=== PATIENT | female | born 2000 | race Caucasian/White ===

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

== ENCOUNTER 2018-07-24 17:35 | Emergency (ER) | payer MEDICAID ==
[2018-07-24 18:03] VITALS: BP 125/88
--- NOTE | 2018-07-24 18:24 | EDM.PDOC ---
ED HPI GENERAL MEDICAL PROBLEM - General Chief Complaint: Skin Complaint Stated Complaint: SPOTS ON LEG Time Seen by Provider: 07/24/18 18:04 Source of Information: Reports: Patient, RN Notes Reviewed History Limitations: Reports: No Limitations - History of Present Illness INITIAL COMMENTS - FREE TEXT/NARRATIVE: 17-year-old female presents emergency department today with a rash to the back of her right leg she has 2 ringlike lesions the just started today they are tender it is not itchy and the skin is dry around him she's never had this before. Denies any tick exposure - Related Data Allergies Allergy/AdvReac Type Severity Reaction Status Date / Time No Known Allergies Allergy Verified 07/24/18 17:55 Home Meds: Home Meds NK [No Known Home Meds] 07/18/16 [History] Past Medical History Other PURCHASING BUYER History: pt has an IUD in place Social & Family History - Tobacco Use Smoking Status *Q: Never Smoker - Caffeine Use Caffeine Use: Reports: Coffee ED ROS GENERAL - Review of Systems Review Of Systems: See Below Constitutional: Reports: No Symptoms Skin: Reports: Rash. Denies: Pruritis ED EXAM, SKIN/RASH Exam: See Below Text/Narrative:: Examination of the integument system there are 2 ringlike lesions one is approximately the size of a dime the other slightly smaller back of the right thigh they are not tender to palpation they are rough in texture consistent with nummular eczema Course - Vital Signs Last Recorded V/S: Last Vital Signs Temp 97.1 F 07/24/18 18:01 Pulse 96 07/24/18 18:01 Resp 14 07/24/18 18:01 BP 125/88 07/24/18 18:01 Pulse Ox 98 07/24/18 18:01 Departure - Departure Time of Disposition: 18:24 Disposition: Home, Self-Care 01 Condition: Good Clinical Impression: Nummular eczema - Discharge Information Referrals: Zulma Lorenzo MD [Primary Care Provider] - Additional Instructions: Triamcinolone 1% cream applied to affected area 3 times a day until clear follow up with primary care in 3-5 days if no improvement - Assessment/Plan Plan: Assessment Acuity = acute Site and laterality = nummular eczema Etiology = unknown etiology Manifestations = none Location of injury = Home Lab values = none Plan Triamcinolone 1% cream applied to affected area 3 times a day until clear follow up with primary care in 3-5 days if no improvement This note was dictated using [employer]™ Audio voice recognition software please call with any questions on syntax or grammar.
== END 2018-07-24 18:37 | disposition home or self-care (01) ==
LOC: JP.ED 17:35
DX: L30.0 Nummular dermatitis (principal)
CPT/HCPCS: 99282